=== PATIENT | female | born 1945 | race Caucasian/White ===

== ENCOUNTER 2017-12-02 11:43 | Emergency (ER) | payer MEDICARE, BC ==
[~2017-12-02] VITALS: Ht 170.2 cm; Wt 69.9 kg
[2017-12-02 11:43] VITALS: BP 141/83
[2017-12-02] MEDS ORDERED: IBUPROFEN 600 MG TABLET PO ONE (12:20)
--- NOTE | 2017-12-02 12:20 | NUR ---
pt taken to ct
[2017-12-02] MEDS: IBUPROFEN 600 MG TABLET PO ONE (12:28)
== END 2017-12-02 13:44 | disposition home or self-care (01) ==
LOC: ER 12:00
DX: S22.42XA Multiple fractures of ribs, left side, initial encounter for closed fracture (principal); F10.10 Alcohol abuse, uncomplicated; V43.62XA Car passenger injured in collision with other type car in traffic accident, initial encounter; Y93.89 Activity, other specified; Y92.410 Unspecified street and highway as the place of occurrence of the external cause; Y99.8 Other external cause status
CPT/HCPCS: 71045; 74176; 99284; A4606; Z7610